=== PATIENT | female | born 1960 | race Caucasian/White ===

== ENCOUNTER 2016-07-14 06:43 | Day surgery (SDC) | payer OTHER ==
[2016-07-14] MEDS ORDERED: Dextrose 5%-Lactated Ringers 1,000 ML IV SCH (07:15)
[2016-07-14] MEDS ORDERED: Midazolam 1 MG/ML 2 ML SDV ONE (07:16)
[2016-07-14] MEDS ORDERED: Propofol 200 MG/20 ML SDV ONE (07:16)
[2016-07-14] MEDS ORDERED: fentaNYL 100 MCG/2 ML SDV ONE (07:16)
[2016-07-14 09:21] VITALS: BP 106/61
--- NOTE | 2016-07-23 11:28 | OR ---
DATE OF PROCEDURE: 07/14/2016 PREOPERATIVE DIAGNOSIS: Indication for colon screening. POSTOPERATIVE DIAGNOSIS: Normal screening colonoscopy. OPERATIVE PROCEDURE: Colonoscopy. ANESTHESIA: IV sedation. INDICATION FOR PROCEDURE: This is a 55-year-old female presenting for a screening colonoscopy. Plan is to proceed with a colonoscopy with biopsies and/or polypectomy as indicated. Potential risks including bleeding and perforation were discussed, and the patient wishes to proceed. DETAILS OF PROCEDURE: The patient was taken to the operating room and placed in a left lateral decubitus position. IV sedation was administered, after which the colonoscope was inserted into the rectum with retroflexion revealing uncomplicated hemorrhoidal columns. The scope was then eventually passed to the cecum. The prep was fairly good with only a small amount of liquid stool present. To that level, no abnormalities were noted. Specifically, no diverticula, no areas of colitis. No polyps or other signs of neoplasia. The scope was then withdrawn. The above findings reconfirmed, and the procedure concluded. The patient was taken to the recovery room in satisfactory condition. With the absence of any family history of colorectal neoplasia, the recommendation would be to repeat this colonoscopy in 10 years. Ryan Grigsby MD /[id number]
== END 2016-07-14 09:38 | disposition home or self-care (01) ==
LOC: JP.SDS 06:43
PROVIDERS: ATTEND Surgery
PROC: 0DJD8ZZ Inspection of Lower Intestinal Tract, Via Natural or Artificial Opening Endoscopic (ICD-10-PCS; principal; 2016-07-14)
DX: Z12.11 Encounter for screening for malignant neoplasm of colon (principal)
CPT/HCPCS: 45378; J2250; J2704; J3010; J7042

== ENCOUNTER 2021-02-09 10:45 | Emergency (ER) | payer OTHER ==
[2021-02-09 10:59] VITALS: BP 158/77; PULSE 66
[2021-02-09] MEDS ORDERED: Bacitracin Oint 1 GM U/D Packet TOP ONE (11:04)
--- NOTE | 2021-02-09 11:33 | EDM.PDOC ---
ED HPI GENERAL MEDICAL PROBLEM - General Chief Complaint: Laceration Stated Complaint: CUT FINGER WITH KNIFE Time Seen by Provider: 02/09/21 11:00 Source of Information: Reports: Patient History Limitations: Reports: No Limitations - History of Present Illness INITIAL COMMENTS - FREE TEXT/NARRATIVE: 60-year-old female with a laceration to the index finger on her left hand. She was cutting pickles with a knife and accidentally cut a flap of the radial side of the index finger distally. The flap is still attached on the palmar surface of the finger, but the majority is lacerated. The total length of the outside of the flap is 2.5 cm. She did take just a little bit of nail off as well. It is all distal to the DIP joint. Onset: Sudden Duration: Hour(s): (Within the last hour) Location: Reports: Upper Extremity, Left Associated Symptoms: Reports: No Other Symptoms Treatments [employer]: Reports: Dressing(s) - Related Data Allergies Allergy/AdvReac Type Severity Reaction Status Date / Time ibuprofen Allergy Sneezing Verified 02/09/21 10:59 naproxen Allergy Sneezing Verified 02/09/21 10:59 Home Meds: Home Meds Calcium Carbonate/Vitamin D3 [Calcium 600 + Vit D 200] 1 each PO DAILY 04/30/15 [History] Multivitamin with Minerals [Multiple Vitamin] 1 tab PO DAILY 04/30/15 [History] [place]-3/DHA/Epa/Fish Oil [Fish Oil 1,000 mg Softgel] 1 each PO DAILY 04/30/15 [History] Aspirin 1 tab PO DAILY 02/09/21 [History] Past Medical History - Past Health History Medical/Surgical History: Denies Medical/Surgical History HEENT History: Reports: Impaired Vision, Sinusitis Genitourinary History: Reports: None SHIPPER History: Reports: Spontaneous Musculoskeletal History: Reports: Arthritis, Fracture Other Musculoskeletal History: R knee/toe arthritis Endocrine/Metabolic History: Reports: Obesity/BMI 30+ Hematologic History: Reports: Anesthesia Reaction, B12 Deficiency Other Hematologic History: N/V after anesthesia - Infectious Disease History Infectious Disease History: Reports: Chicken Pox - Past Surgical History HEENT Surgical History: Reports: Naso-Sinus Surgery, Other (See Below) Other HEENT Surgeries/Procedures: nasal polyps Female Surgical History: Reports: D&C Musculoskeletal Surgical History: Reports: None Social & Family History - Family History Oncologic: Reports: Lymphoma - Tobacco Use Tobacco Use Status *Q: Never Tobacco User - Caffeine Use Caffeine Use: Reports: Soda ED ROS GENERAL - Review of Systems Review Of Systems: See Below Constitutional: Denies: Fever, Chills Respiratory: Denies: Shortness of Breath Cardiovascular: Denies: Chest Pain GI/Abdominal: Denies: Nausea, Vomiting Psychiatric: Reports: No Symptoms ED EXAM, SKIN/RASH Exam: See Below Exam Limited By: No Limitations General Appearance: Alert, No Apparent Distress Head: Atraumatic Respiratory/Chest: No Respiratory Distress Extremities: Other (The left index finger has a oval flap laceration on the radial aspect of the distal index finger.) Neurological: Alert, Oriented Psychiatric: Normal Affect, Normal Mood Course - Vital Signs Last Recorded V/S: Last Vital Signs Temp 97 F 02/09/21 10:58 Pulse 66 02/09/21 10:58 Resp 18 02/09/21 10:58 BP 158/77 H 02/09/21 10:58 Pulse Ox 99 02/09/21 10:58 - Orders/Labs/Meds Meds: Medications Discontinued Medications Generic Name Dose Route Start Last Admin Trade Name Freq PRN Reason Stop Dose Admin Bacitracin 1 dose 02/09/21 11:04 02/09/21 11:11 Bacitracin Oint 1 Gm U/D Packet TOP 02/09/21 11:05 1 dose ONETIME ONE Administration Lidocaine HCl 5 ml 02/09/21 11:04 02/09/21 11:10 Lidocaine 1% 5 Ml Sdv INJECT 02/09/21 11:05 5 ml ONETIME ONE Administration - Re-Assessments/Exams Free Text/Narrative Re-Assessment/Exam: 02/09/21 11:31 The wound was anesthetized with 1% lidocaine, cleansed thoroughly with saline and Hibiclens, and six 5-0 Ethilon sutures were used to replace the flap in its anatomical position. Sutures can be removed in 1 week. Topical bacitracin and a bandage was applied, and she was supplied with a finger protective splint as well. She can return next week for suture removal, or recheck sooner if concerns of infection or not healing satisfactorily. Departure - Departure Time of Disposition: 12:10 Disposition: Home, Self-Care 01 Clinical Impression: Laceration of left index finger Qualifiers: Encounter type: initial encounter Damage to nail status: with damage Foreign body presence: without foreign body Qualified Code(s): S61.311A - Laceration without foreign body of left index finger with damage to nail, initial encounter - Discharge Information Instructions: Laceration Care, Adult, [id number] Referrals: Natalie Mitchell PA [Primary Care Provider] - Forms: ED Department Discharge Care Plan Goals: Keep laceration covered and clean while healing, recheck next Wednesday for suture removal or recheck sooner if concerns of infection or not healing satisfa ctorily. Sepsis Event Note (ED) - Evaluation Sepsis Screening Result: No Definite Risk - Focused Exam Vital Signs: Vital Signs Temp Pulse Resp BP Pulse Ox 02/09/21 10:58 97 F 66 18 158/77 H 99
== END 2021-02-09 12:11 | disposition home or self-care (01) ==
LOC: JP.ED 10:45
DX: S61.311A Laceration without foreign body of left index finger with damage to nail, initial encounter (principal); E66.9 Obesity, unspecified; Z88.6 Allergy status to analgesic agent; Z79.82 Long term (current) use of aspirin; Z68.38 Body mass index [BMI] 38.0-38.9, adult; W26.0XXA Contact with knife, initial encounter
CPT/HCPCS: 12001; 99282-25